=== PATIENT | female | born 1955 | race Caucasian/White ===

== ENCOUNTER → 2023-11-29 09:42 | Outpatient (CLI) | payer MEDICARE, OTHER, SELFPAY | LOC: RESP 09:44 | PROVIDERS: PCP Physician Assistant; Referring Provider Physician Assistant; Visit Provider Physician Assistant | DX: D86.0 Sarcoidosis of lung (principal); R94.2 Abnormal results of pulmonary function studies | CPT/HCPCS: 94010; 94726; 94729 ==